=== PATIENT | female | born 1965 | race Hispanic/Latino ===

== ENCOUNTER 2022-01-06 22:23 | Inpatient (IN) | payer OTHER ==
[~2022-01-06] VITALS: Ht 160 cm; Wt 67.1 kg
[2022-01-06] MEDS ORDERED: SODIUM CHLORIDE 0.9% 1000ML 1,000 ML IV STA ×2 (22:47→22:57)
[2022-01-06] MEDS ORDERED: KETOROLAC TROMETHAMINE 30 MG/ML VIAL IV ONE (23:00)
[2022-01-06] MEDS ORDERED: ONDANSETRON HCL INJ 2MG/ML 2ML 2 MG/ML VIAL IV ONE (23:00)
[2022-01-06] MEDS ORDERED: FAMOTIDINE 20 MG/2 ML VIAL IV ONE (23:00)
[2022-01-06] MEDS ORDERED: SODIUM CHLORIDE 0.9% 1000ML 2,000 ML ONE (23:12)
[2022-01-07] VITALS (9 sets, daily range): BP systolic 103–130; BP diastolic 58–71
[2022-01-07] MEDS ORDERED: DIPHENHYDRAMINE HCL INJ 50 MG/ML VIAL IV PRN (00:45)
[2022-01-07] MEDS ORDERED: ONDANSETRON HCL INJ 2MG/ML 2ML 2 MG/ML VIAL IV PRN ×2 (00:45→03:00)
[2022-01-07] MEDS ORDERED: HYDROMORPHONE 2MG/ML 2 MG/ML ML IV PRN (01:00)
[2022-01-07] MEDS ORDERED: PIPERACILLIN/TAZOBACTAM 3.375 GM VIAL ONE (01:16)
[2022-01-07] MEDS ORDERED: SODIUM CHLORIDE 0.9% 100 ML ONE (01:17)
[2022-01-07] MEDS ORDERED: FAMOTIDINE 20 MG/2 ML VIAL IV ONE (03:00)
[2022-01-07] MEDS: SODIUM CHLORIDE 0.9% 1000ML 1,000 ML IV SCH ×4 (03:25→17:18)
[2022-01-07] MEDS ORDERED: LOSARTAN POTASS25 MG PO (04:25)
[2022-01-07] MEDS ORDERED: VITAMIN B-121000 MC2 PO (04:25)
[2022-01-07] MEDS ORDERED: ULTRAM50 MG PO (04:25)
[2022-01-07] MEDS ORDERED: OMEPRAZOLE40 MG PO (04:25)
[2022-01-07] MEDS ORDERED: CYMBALTA30 MG (04:25)
[2022-01-07] MEDS: FAMOTIDINE 20 MG/2 ML VIAL IV SCH ×2 (09:00→17:18)
[2022-01-07] MEDS: LOSARTAN POTASSIUM 25 MG TAB PO SCH (10:05)
[2022-01-07] MEDS: DULOXETINE HCL 30 MG DELAYED RELEASE PO SCH (10:06)
[2022-01-07] MEDS: HYDROMORPHONE 1MG/1ML INJ IV PRN ×2 (10:15→21:13)
[2022-01-07] MEDS ORDERED: Morphine 4mg INJECTION 4 MG/ML INJ IV ONE (17:30)
[2022-01-07] MEDS: ACETAMINOPHEN 325 MG TAB PO PRN (23:10)
[2022-01-08] VITALS (8 sets, daily range): BP systolic 102–120; BP diastolic 47–66
[2022-01-08 07:14] LABS: HEMOGLOBIN 9.6 g/dL (12.0-16.0); LYMPHOCYTES # (AUTO) 1.2 (1.0-3.2); LYMPHOCYTES % 28.3 % (18.0-39.1); MEAN CORPUSCULAR HEMOGLOBIN 29.5 pg (28-32); MEAN CORPUSCULAR HGB CONC 33.1 g/dL (31-35); MEAN CORPUSCULAR VOLUME 89.2 fL (81-99); MONOCYTES # (AUTO) 0.6 (0.2-0.8); MONOCYTES % 13.6 % (4.4-11.3); NEUTROPHILS # (AUTO) 2.4 (2.1-6.9); NEUTROPHILS % 57.6 % (38.7-80.0); PLATELET COUNT 143 x10e3/uL (140-360); RED BLOOD COUNT 3.25 x10e6/uL (3.6-5.1)
[2022-01-08] MEDS ORDERED: PANTOPRAZOLE SOD 40 MG TABEC PO SCH (07:30)
[2022-01-08] MEDS: LOSARTAN POTASSIUM 25 MG TAB PO SCH (07:57)
[2022-01-08] MEDS: FAMOTIDINE 20 MG/2 ML VIAL IV SCH ×2 (07:57→16:11)
[2022-01-08] MEDS: DULOXETINE HCL 30 MG DELAYED RELEASE PO SCH (07:57)
[2022-01-08] MEDS: SODIUM CHLORIDE 0.9% 1000ML 1,000 ML IV SCH ×2 (07:58→16:45)
[2022-01-08 08:14] LABS: ALBUMIN 2.7 g/dL (3.5-5.0); ALBUMIN/GLOBULIN RATIO 0.9 (0.8-2.0); CALCIUM 7.8 mg/dL (8.4-10.2); CREATININE, SERUM 0.52 mg/dL (0.57-1.11)
[2022-01-08] MEDS ORDERED: POTASSIUM CHLORIDE 10MEQ/100ML 200 ML IV ONE (09:45)
[2022-01-08] MEDS: HYDROMORPHONE 1MG/1ML INJ IV PRN (10:51)
[2022-01-08] MEDS: ACETAMINOPHEN 325 MG TAB PO PRN (18:00)
[2022-01-09] VITALS (8 sets, daily range): BP systolic 111–138; BP diastolic 60–87
[2022-01-09] MEDS: SODIUM CHLORIDE 0.9% 1000ML 1,000 ML IV SCH ×3 (00:45→17:44)
[2022-01-09] MEDS: ACETAMINOPHEN 325 MG TAB PO PRN ×2 (00:46→02:08)
[2022-01-09 06:43] LABS: BASOPHILS % 0.2 % (0.0-1.0); EOSINOPHILS % 0.2 % (0.0-6.0); HEMATOCRIT 29.9 % (34.2-44.1); HEMOGLOBIN 9.9 g/dL (12.0-16.0); LYMPHOCYTES # (AUTO) 1.3 (1.0-3.2); LYMPHOCYTES % 29.7 % (18.0-39.1); MEAN CORPUSCULAR HEMOGLOBIN 29.7 pg (28-32); MEAN CORPUSCULAR HGB CONC 33.1 g/dL (31-35); MEAN CORPUSCULAR VOLUME 89.8 fL (81-99); MONOCYTES # (AUTO) 0.5 (0.2-0.8); MONOCYTES % 10.8 % (4.4-11.3); NEUTROPHILS # (AUTO) 2.6 (2.1-6.9); NEUTROPHILS % 59.1 % (38.7-80.0); PLATELET COUNT 170 x10e3/uL (140-360); RED BLOOD COUNT 3.33 x10e6/uL (3.6-5.1); RED CELL DISTRIBUTION WIDTH 12.8 % (11.7-14.4)
[2022-01-09 07:17] LABS: ALANINE AMINOTRANSFERASE 289 IU/L (0-55); ALBUMIN 2.9 g/dL (3.5-5.0); ALBUMIN/GLOBULIN RATIO 1.1 (0.8-2.0); ALKALINE PHOSPHATASE 183 IU/L (40-150); ANION GAP 13.9 mmol/L (8-16); BLOOD UREA NITROGEN < 5 mg/dL (7-26); CALCIUM 7.9 mg/dL (8.4-10.2); CARBON DIOXIDE 24 mmol/L (22-29); CHLORIDE 106 mmol/L (98-107); CREATININE, SERUM 0.51 mg/dL (0.57-1.11); GLUCOSE 83 mg/dL (74-118); SODIUM 141 mmol/L (136-145)
[2022-01-09 07:22] LABS: BUN/CREATININE RATIO 10 (6-25); POTASSIUM 2.9 mmol/L (3.5-5.1)
[2022-01-09] MEDS ORDERED: POTASSIUM CHLORIDE 20MEQ/100ML 100 ML IV ONE (07:45)
[2022-01-09] MEDS: LOSARTAN POTASSIUM 25 MG TAB PO SCH (09:00)
[2022-01-09] MEDS: DULOXETINE HCL 30 MG DELAYED RELEASE PO SCH (09:00)
[2022-01-09] MEDS ORDERED: GADOBENATE DIMEGLUMINE 1 ML IV ONE (09:17)
[2022-01-09] MEDS ORDERED: POTASSIUM CHLORIDE 10MEQ/100ML 100 ML IV ONE (10:00)
[2022-01-09] MEDS: FAMOTIDINE 20 MG/2 ML VIAL IV SCH ×2 (10:33→17:44)
[2022-01-09] MEDS: HYDROMORPHONE 1MG/1ML INJ IV PRN (13:25)
[2022-01-09] MEDS ORDERED: SENNA LAX8.6 MG PO (22:47)
[2022-01-09] MEDS ORDERED: METRONIDAZOLE250 MG PO (22:47)
[2022-01-09] MEDS ORDERED: ONDANSETRON ODT4 MG PO (22:47)
[2022-01-10 00:47] VITALS: BP 120/60
[2022-01-10 01:35] LABS: % IRON SATURATION 17 % (15-50); IRON 49 ug/dL (50-170); TOTAL IRON BINDING CAPACITY 283 ug/dL (261-478); TRANSFERRIN 202 mg/dL (180-382)
[2022-01-10 04:00] VITALS: BP 113/66
[2022-01-10] MEDS: SODIUM CHLORIDE 0.9% 1000ML 1,000 ML IV SCH (05:04)
[2022-01-10 05:40] LABS: ALANINE AMINOTRANSFERASE 215 IU/L (0-55); ALBUMIN 2.9 g/dL (3.5-5.0); ALBUMIN/GLOBULIN RATIO 0.9 (0.8-2.0); ALKALINE PHOSPHATASE 190 IU/L (40-150); ANION GAP 15.1 mmol/L (8-16); BLOOD UREA NITROGEN < 5 mg/dL (7-26); CALCIUM 8.4 mg/dL (8.4-10.2); CARBON DIOXIDE 24 mmol/L (22-29); CHLORIDE 107 mmol/L (98-107); CREATININE, SERUM 0.51 mg/dL (0.57-1.11); GLUCOSE 89 mg/dL (74-118); POTASSIUM 3.1 mmol/L (3.5-5.1); SODIUM 143 mmol/L (136-145)
[2022-01-10 05:49] LABS: BUN/CREATININE RATIO 10 (6-25)
[2022-01-10 08:04] VITALS: BP 122/60
[2022-01-10 08:15] VITALS: BP 122/60
[2022-01-10 08:29] LABS: BASOPHILS % 0.3 % (0.0-1.0); EOSINOPHILS % 0.9 % (0.0-6.0); HEMATOCRIT 30.8 % (34.2-44.1); HEMOGLOBIN 10.2 g/dL (12.0-16.0); LYMPHOCYTES # (AUTO) 1.7 (1.0-3.2); LYMPHOCYTES % 50.2 % (18.0-39.1); MEAN CORPUSCULAR HEMOGLOBIN 29.8 pg (28-32); MEAN CORPUSCULAR HGB CONC 33.1 g/dL (31-35); MEAN CORPUSCULAR VOLUME 90.1 fL (81-99); MONOCYTES # (AUTO) 0.3 (0.2-0.8); MONOCYTES % 10.3 % (4.4-11.3); NEUTROPHILS # (AUTO) 1.3 (2.1-6.9); NEUTROPHILS % 38.3 % (38.7-80.0); PLATELET COUNT 186 x10e3/uL (140-360); RED BLOOD COUNT 3.42 x10e6/uL (3.6-5.1); RED CELL DISTRIBUTION WIDTH 12.7 % (11.7-14.4)
[2022-01-10] MEDS: FAMOTIDINE 20 MG/2 ML VIAL IV SCH (08:59)
[2022-01-10] MEDS: LOSARTAN POTASSIUM 25 MG TAB PO SCH (08:59)
[2022-01-10] MEDS: DULOXETINE HCL 30 MG DELAYED RELEASE PO SCH (08:59)
[2022-01-10] MEDS ORDERED: POTASSIUM CHLORIDE 20 MEQ TAB CR PO ONE (09:30)
[2022-01-10] MEDS ORDERED: ACETAMINOPHEN325 M1 PO (09:49)
== END 2022-01-10 10:10 | disposition home or self-care (01) | DRG 444 ==
LOC: FSED 22:37 → INTOOBSV 01-07 00:47 → ERHOLD 01-07 00:47 → MED/SURG2 01-07 02:36 → OBSVTOIN 01-09 11:26
PROVIDERS: ADMIT Internal Medicine; ATTEND Internal Medicine
PROC: 8E0ZXY6 Isolation (ICD-10-PCS; principal; 2022-01-10)
DX: K80.20 Calculus of gallbladder without cholecystitis without obstruction (principal); U07.1 COVID-19; R17 Unspecified jaundice; E87.6 Hypokalemia; K21.9 Gastro-esophageal reflux disease without esophagitis; M79.7 Fibromyalgia; I10 Essential (primary) hypertension
CPT/HCPCS: 36415; 74176; 74183; 76700; 78227; 80048; 80053; 81003; 82607; 82746; 83540; 83690; 84132; 84466; 85025; 85045; 85379; 87040; 93005; 96360; 99284; A9537; G0378; J1170; J1885; J2270; J2405; J2543; J3480; J7030; J7050